=== PATIENT | female | born 1965 | race Caucasian/White ===

== ENCOUNTER → 2021-02-08 08:35 | Outpatient (BNVA) | payer OTHER, SELFPAY | PROVIDERS: Family Provider Family Medicine; PCP Family Medicine; Referring Provider Dermatology; Visit Provider Podiatrist Foot & Ankle Surgery | DX: M79.671 Pain in right foot (principal) | CPT/HCPCS: 73630 ==

== ENCOUNTER 2021-03-24 08:48 | Outpatient (CLI) | payer OTHER, SELFPAY ==
[2021-03-24 09:38] LABS: Alanine Aminotransferase 14 U/L (0-33); Alkaline Phosphatase 141 IU/L (35-105); Anion Gap 12.5 (5-19); Aspartate Amino Transferase 19 U/L (0-32); Blood Urea Nitrogen 9 mg/dL (6-20); Carbon Dioxide 29 mmol/L (22-29); Chloride 102 mmol/L (98-107); Globulin 2.7 g/dL (1.3-4.6); Glomerular Filtration Rate 87.5 mL/min (90-130); Glucose 108 mg/dL (65-115); Osmolality Calculated 287 mOsm/kg (285-295); Potassium 4.5 mmol/L (3.5-5.1); Sodium 139 mmol/L (136-145); Total Bilirubin 0.4 mg/dL (0.15-1.2); Total Protein 6.7 g/dL (6.6-8.7)
== END 2021-03-24 08:49 | disposition home or self-care (01) ==
PROVIDERS: PCP Family Medicine; Visit Provider Podiatrist Foot & Ankle Surgery
DX: L60.3 Nail dystrophy (principal); M77.51 Other enthesopathy of right foot and ankle; M79.673 Pain in unspecified foot
CPT/HCPCS: 36415; 80053